=== PATIENT | female | born 1975 | race Caucasian/White ===

== ENCOUNTER 2016-09-01 10:28 | Emergency (ER) | payer BC, OTHER ==
[2016-09-01 11:13] VITALS: RESP 16
[2016-09-01] MEDS ORDERED: SODIUM CHLORIDE 0.9% 1,000 ML IV STA (12:31)
--- NOTE | 2016-09-01 12:43 | ED ---
General Adult HPI - General Chief complaint: Vaginal Bleeding Stated complaint: abd pain 8 weeks preg Time Seen by Provider: 09/01/16 12:22 Source: patient, RN notes reviewed Mode of arrival: ambulatory Limitations: no limitations - History of Present Illness Initial comments: 41-year-old female presents to the emergency department with a chief complaint of vaginal bleeding. Patient was diagnosed with no activity on Saturday. Patient states her last today she's noticed some increased vaginal bleeding she' s passing clots. Patient states she has had some lightheadedness with this and felt faint like she might pass out so she became concerned. Patient states she has had some cramping with this. atient states she was concerned due to her continued symptoms that she thought that she should be evaluated.Patient denies any recent fever, chills, shortness of breath, chest pain, back pain, nausea vomiting, numbness or tingling, dysuria or hematuria, constipation or diarrhea, headaches or visual changes, or any other current symptoms. - Related Data Home Medications Medication Instructions Recorded Confirmed Pnv with Ca,No.72/Iron/FA 1 tab PO HS 09/01/16 09/01/16 [ Plus Tablet] Allergies Allergy/AdvReac Type Severity Reaction Status Date / Time bupropion [From Wellbutrin] Allergy Unknown Verified 09/01/16 12:10 Review of Systems ROS Statement: Those systems with pertinent positive or pertinent negative responses have been documented in the HPI. ROS Other: All systems not noted in ROS Statement are negative. Past Medical History Past Medical History: No Reported History History of Any Multi-Drug Resistant Organisms: None Reported Past Surgical History: No Surgical Hx Reported Past Psychological History: No Psychological Hx Reported Smoking Status: Current every day smoker Past Alcohol Use History: None Reported Past Drug Use History: None Reported General Exam - General Exam Comments Initial Comments: General: The patient is awake and alert, in no distress, and does not appear acutely ill. Eye: Pupils are equal, round and reactive to light, extra-ocular movements are intact; there is normal conjunctiva bilaterally. No signs of icterus. Ears, nose, mouth and throat: There are moist mucous membranes and no oral lesions. Neck: The neck is supple, there is no tenderness. Cardiovascular: There is a regular rate and rhythm. No murmur, rub or gallop is appreciated. Respiratory: Lungs are clear to auscultation, respirations are non-labored, breath sounds are equal. No wheezes, stridor, rales, or rhonchi. Gastrointestinal: Soft, non-distended, non-tender abdomen without masses or organomegaly noted. There is no rebound or guarding present. No CVA tenderness. Bowel sounds are unremarkable. Back: There is no tenderness to palpation in the midline. There is no obvious deformity. No rashes noted. Musculoskeletal: Normal ROM, no tenderness, There is no pedal edema. There is no calf tenderness or swelling. Sensation intact. Pulses equal bilaterally 2+. Neurological: CN II-XII intact, There are no obvious motor or sensory deficits. Coordination appears grossly intact. Speech is normal. Skin: Skin is warm and dry and no rashes or lesions are noted. Psychiatric: Cooperative, appropriate mood & affect, normal judgment. Limitations: no limitations Course Vital Signs 09/01/16 09/01/16 11:10 13:20 Temperature 99.1 F Pulse Rate 81 Pulse Rate [ 67 Radial] Respiratory 16 Rate Blood Pressure 98/52 Blood Pressure 92/53 [Sitting] Blood Pressure 88/52 [Standing] Blood Pressure 88/47 [Supine] O2 Sat by Pulse 100 Oximetry Medical Decision Making - Medical Decision Making 41-year-old female presents for vaginal bleeding in . At this time patient's ultrasound and blood work was reviewed. It appears that the patient did have a spontaneous . At this time patient's pelvic exam showed minimal amount of bleeding. A discussion follow-up with her MACHINIST MATE. We did discuss return parameters. The simply like to go prior to giving a urine sample. This time she will be discharged. We discussed return parameters all patient's questions. She stated that she understood and she has agreed with plan. She will be discharged. - Lab Data Result diagrams: 09/01/16 12:50 09/01/16 12:50 Lab Results 09/01/16 09/01/16 09/01/16 Range/Units 12:50 12:50 12:50 WBC 6.1 (3.8-10.6) k/uL RBC 3.61 L (3.80-5.40) m/uL Hgb 11.6 (11.4-16.0) gm/dL Hct 35.6 (34.0-46.0) % MCV 98.7 (80.0-100.0) fL MCH 32.2 (25.0-35.0) pg MCHC 32.6 (31.0-37.0) g/dL RDW 13.1 (11.5-15.5) % Plt Count 194 (150-450) k/uL Neutrophils % 77 % Lymphocytes % 17 % Monocytes % 4 % Eosinophils % 1 % Basophils % 1 % Neutrophils # 4.7 (1.3-7.7) k/uL Lymphocytes # 1.1 (1.0-4.8) k/uL Monocytes # 0.2 (0-1.0) k/uL Eosinophils # 0.0 (0-0.7) k/uL Basophils # 0.0 (0-0.2) k/uL Sodium 139 (137-145) mmol/L Potassium 4.2 (3.5-5.1) mmol/L Chloride 107 (98-107) mmol/L Carbon Dioxide 27 (22-30) mmol/L Anion Gap 5 mmol/L BUN 5 L (7-17) mg/dL Creatinine 0.66 (0.52-1.04) mg/dL Est GFR (MDRD) Af Amer >60 (>60 ml/min/1.73 sqM) Est GFR (MDRD) Non-Af >60 (>60 ml/min/1.73 sqM) Glucose 93 (74-99) mg/dL Calcium 9.3 (8.4-10.2) mg/dL Total Bilirubin 0.4 (0.2-1.3) mg/dL AST 20 (14-36) U/L ALT 28 (9-52) U/L Alkaline Phosphatase 47 (38-126) U/L Total Protein 6.7 (6.3-8.2) g/dL Albumin 4.1 (3.5-5.0) g/dL HCG, Quant 3998.7 mIU/mL Blood Type O Positive Blood Type Recheck No - Radiology Data Radiology results: report reviewed, image reviewed Disposition Clinical Impression: Spontaneous Disposition: HOME SELF-CARE Condition: Stable Instructions: Miscarriage (ED) Additional Instructions: Please use medication as discussed. Please follow up with family doctor if symptoms have not improved over the next two days. Please return to the emergency room if your symptoms increase or worsen or for any other concerns. Referrals: Cynthia Dillon MD [Primary Care Provider] - 1-2 days Aruna Cody MD [STAFF PHYSICIAN] - 1-2 days Time of Disposition: 14:42
[2016-09-01 13:04] LABS: Basophils % (A) 1 %; CH 32.3; CHCM 32.9; Eosinophils % (A) 1 %; HCT 35.6 % (34.0-46.0); HDW 1.93; HGB 11.6 gm/dL (11.4-16.0); Luc # (Auto) 0.08; Luc % (Auto) 1; Lymphocytes # (A) 1.1 k/uL (1.0-4.8); Lymphocytes % (A) 17 %; MCH 32.2 pg (25.0-35.0); MCHC 32.6 g/dL (31.0-37.0); MCV 98.7 fL (80.0-100.0); Mean Platelet Volume 7.4; Monocytes # (A) 0.2 k/uL (0-1.0); Monocytes % (A) 4 %; Neutrophils # (A) 4.7 k/uL (1.3-7.7); Neutrophils % (A) 77 %; RBC 3.61 m/uL (3.80-5.40); RDW 13.1 % (11.5-15.5); WBC 6.1 k/uL (3.8-10.6); WBC (Perox) 5.99
[2016-09-01 13:15] LABS: ALT 28 U/L (9-52); AST 20 U/L (14-36); Alkaline Phosphatase 47 U/L (38-126); Anion Gap 5 mmol/L; Blood Urea Nitrogen 5 mg/dL (7-17); Calcium 9.3 mg/dL (8.4-10.2); Carbon Dioxide 27 mmol/L (22-30); Chloride 107 mmol/L (98-107); Glucose 93 mg/dL (74-99); Non-African American GFR(MDRD) >60 (>60 ml/min/1.73 sqM); Potassium 4.2 mmol/L (3.5-5.1); Sodium 139 mmol/L (137-145); Total Bilirubin 0.4 mg/dL (0.2-1.3); Total Protein 6.7 g/dL (6.3-8.2)
[2016-09-01 13:30] LABS: HCG,Quantitative Serum 3998.7 mIU/mL
--- NOTE | 2016-09-01 14:32 | US ---
EXAMINATION TYPE: US OB <= 14 wk fetus DATE OF EXAM: 09/01/2016 1:55 PM COMPARISON: NONE CLINICAL HISTORY: Pain. pt had ultrasound one week ago at [facility] and showed empty gest sac; now heavy bleeding and passing large clots EXAM PERFORMED: Transabdominal (TA) EXAM MEASUREMENTS: GESTATIONAL AGE / DATING Physician Established: not established Dates by LMP: unknown lmp Dates by First Scan: no prior here Dates by Current Scan for: no IUP seen MATERNAL ANATOMY Uterus: 11.3 x 4.8 x 6.8cm Endometrium: 1.7cm Right Ovary: 2.4 x 1.7 x 1.0cm Left Ovary: 2.0 x 1.3 x 2.0cm Post CDS / Adnexa: wnl Presence of free fluid: none seen Thickened heterogeneous non-vascular endometrial debris. No IUP seen. Probable incomplete miscarria ge. IMPRESSION: 1. No intrauterine identified at this time. Correlate for spontaneous . 2. Differential could include ectopic an early intrauterine . Correlation with bet a-hCG is recommended.
[2016-09-01 14:52] VITALS: BP 97/47; PULSE 63; TEMP 98.7
== END 2016-09-01 14:50 | disposition home or self-care (01) ==
LOC: EC 10:28
DX: O03.9 Complete or unspecified spontaneous abortion without complication (principal); O99.89 Other specified diseases and conditions complicating pregnancy, childbirth and the puerperium; O99.331 Smoking (tobacco) complicating pregnancy, first trimester; R42 Dizziness and giddiness; F17.200 Nicotine dependence, unspecified, uncomplicated; Z3A.08 8 weeks gestation of pregnancy; Z79.899 Other long term (current) drug therapy; Z88.8 Allergy status to other drugs, medicaments and biological substances
CPT/HCPCS: 36415; 76801; 80053; 84702; 85025; 86900; 86901; 96360; 99284

== ENCOUNTER → 2017-03-20 | Outpatient (CLI) | payer OTHER ==
--- NOTE | 2017-03-20 15:05 | FL ---
EXAMINATION TYPE: FL barium swallow DATE OF EXAM: 03/20/2017 CLINICAL HISTORY: Dysphagia, dysphonia, and palpitations. TECHNIQUE: A double contrast esophagram is performed utilizing air and barium. A total of 1.7 minut es of fluoroscopic time was utilized during procedure with 120 images saved. COMPARISON: None FINDINGS: The esophagus shows normal motility and emptying into the stomach. No evidence of strictur e is noted. Minimal gastroesophageal reflux was seen during real time performance of this study to th e level of the distal third of the esophagus.. No Zenker's or Saco Wei diverticula are seen to a ccount for the patient's symptoms. A small hiatal hernia is noted. Numerous intraluminal gastric fill ing defects do not persist on delayed images and relate to the effervescent crystals. There is extrinsic compression upon the gastric body along the greater curvature creating an obtuse a ngle best seen on images 12 through 15 but persistent throughout the examination. IMPRESSION: 1. Extrinsic compression upon the gastric body creating an obtuse angle. Further evaluation with enha nced CT abdomen is recommended 2. Small hiatal hernia. 3. No upper esophageal abnormality, Saco Wei diverticulum, or Zenker's diverticulum to correspon d to the patient's clinical symptoms. 4. Minimal gastroesophageal reflux to the level of the lower thoracic esophagus (distal third).
== END | disposition home or self-care (01) ==
LOC: RADFLWHC 10:09
PROVIDERS: ATTEND Internal Medicine
DX: K21.9 Gastro-esophageal reflux disease without esophagitis (principal); K44.9 Diaphragmatic hernia without obstruction or gangrene
CPT/HCPCS: 74220

== ENCOUNTER 2017-04-25 14:35 | Emergency (ER) | payer OTHER ==
[2017-04-25 14:43] VITALS: RESP 16
--- NOTE | 2017-04-25 15:36 | ED ---
General Adult HPI - General Chief complaint: Headache Stated complaint: back & chest pain Time Seen by Provider: 04/25/17 15:33 Source: patient, RN notes reviewed, old records reviewed Mode of arrival: ambulatory Limitations: no limitations - History of Present Illness Initial comments: This is a 42-year-old female to the ER for evaluation. She presents here for evaluation of cough congestion and sinusitis chest pain not feeling well. Patient denies fevers occasional chills. No significant medical history takes no medications. Patient saw her doctor for congestion sinus infection one week ago, no antibiotics prescribed. A CT of her chest showed likely pneumonia. Patient states her symptoms have progressed since then is feeling mildly worse. Mild nausea no vomiting. She denies any fevers again no no known sick contacts. Patient denies any shortness of breath or chest pain - Related Data Home Medications Medication Instructions Recorded Confirmed Multivitamins, Thera [Multivitamin 1 tab PO DAILY 04/25/17 04/25/17 (formulary)] Previous Rx's Medication Instructions Recorded Amoxicillin/Potassium Clav 1 tab PO Q12HR #20 tab 04/25/17 [Augmentin 875-125 Tablet] Allergies Allergy/AdvReac Type Severity Reaction Status Date / Time bupropion [From Wellbutrin] Allergy Unknown Verified 04/25/17 15:43 Review of Systems ROS Statement: Those systems with pertinent positive or pertinent negative responses have been documented in the HPI. ROS Other: All systems not noted in ROS Statement are negative. Past Medical History Past Medical History: Pneumonia Additional Past Medical History / Comment(s): tachycardia History of Any Multi-Drug Resistant Organisms: None Reported Past Surgical History: No Surgical Hx Reported Past Psychological History: No Psychological Hx Reported Smoking Status: Current every day smoker Past Alcohol Use History: None Reported Past Drug Use History: None Reported General Exam Limitations: no limitations General appearance: alert, in no apparent distress Head exam: Present: atraumatic, normocephalic, normal inspection Eye exam: Present: normal appearance, PERRL, EOMI. Absent: scleral icterus, conjunctival injection, periorbital swelling ENT exam: Present: normal exam, mucous membranes moist Neck exam: Present: normal inspection. Absent: tenderness, meningismus, lymphadenopathy Respiratory exam: Present: normal lung sounds bilaterally. Absent: respiratory distress, wheezes, rales, rhonchi, stridor Cardiovascular Exam: Present: regular rate, normal rhythm, normal heart sounds. Absent: systolic murmur, diastolic murmur, rubs, gallop, clicks GI/Abdominal exam: Present: soft, normal bowel sounds. Absent: distended, tenderness, guarding, rebound, rigid Extremities exam: Present: normal inspection, full ROM, normal capillary refill. Absent: tenderness, pedal edema, joint swelling, calf tenderness Back exam: Present: normal inspection Neurological exam: Present: alert, oriented X3, CN II-XII intact Psychiatric exam: Present: normal affect, normal mood Skin exam: Present: warm, dry, intact, normal color. Absent: rash Course Vital Signs 04/25/17 04/25/17 14:39 16:53 Temperature 98.7 F 98.2 F Pulse Rate 78 69 Respiratory 16 16 Rate Blood Pressure 128/74 115/56 O2 Sat by Pulse 100 100 Oximetry - Reevaluation(s) Reevaluation #1: 04/25/17 17:03 Patient's in no acute distress feeling better with simply treatment here in the ER Medical Decision Making - Medical Decision Making Provisional ER for evaluation of not feeling well, he should has sinusitis type infection, runny nose cough congestion. Upper respiratory infection, chest x- rays negative, patient be treated appropriately, synthetic therapy discharged home - Lab Data Lab Results 04/25/17 Range/Units 16:28 Urine Color Light Yellow Urine Appearance Clear (Clear) Urine pH 6.5 (5.0-8.0) Ur Specific [place] 1.004 (1.001-1.035) Urine Protein Negative (Negative) Urine Glucose (UA) Negative (Negative) Urine Ketones Negative (Negative) Urine Blood Negative (Negative) Urine Nitrite Negative (Negative) Urine Bilirubin Negative (Negative) Urine Urobilinogen <2.0 (<2.0) mg/dL Ur Leukocyte Esterase Negative (Negative) Disposition Clinical Impression: Sinusitis, Upper respiratory infection Disposition: HOME SELF-CARE Condition: Good Instructions: Upper Respiratory Infection (ED), Sinusitis (ED) Prescriptions: Amoxicillin/Potassium Clav [Augmentin 875-125 Tablet] 1 tab PO Q12HR #20 tab Referrals: Cynthia Dillon MD [Primary Care Provider] - 1-2 days
[2017-04-25] MEDS ORDERED: Acetaminophen-Codeine 300-30mg TAB PO STA (16:18)
[2017-04-25] MEDS ORDERED: ACETAMINOPHEN TAB 325 MG TAB PO STA (16:18)
[2017-04-25] MEDS ORDERED: IBUPROFEN 800 MG TAB PO STA (16:18)
[2017-04-25] MEDS ORDERED: LORATADINE-PSEUDOEPH 5-120 MG 1 EACH TAB.ER.12H PO STA (16:19)
--- NOTE | 2017-04-25 16:39 | XR ---
EXAMINATION TYPE: XR chest 2V DATE OF EXAM: 04/25/2017 COMPARISON: NONE HISTORY: Chest pain TECHNIQUE: Frontal and lateral views of the chest are obtained. FINDINGS: There is no focal air space opacity, pleural effusion, or pneumothorax seen. The cardiac silhouette size is small. Prominent lung volume could be indicative of COPD. The osseous structures are intact. IMPRESSION: No acute cardiopulmonary process.
[2017-04-25 16:45] LABS: Appearance,Urine Clear (Clear); Bilirubin,Urine Negative (Negative); Glucose,Urine (UA) Negative (Negative); Ketones,Urine Negative (Negative); Leukocyte Esterase,Urine Negative (Negative); Nitrite,Urine Negative (Negative); PH, Urine 6.5 (5.0-8.0); Protein,Urine Negative (Negative); Specific Gravity,Urine 1.004 (1.001-1.035); UA Billing (MACRO vs. MICRO) CHEM; Urobilinogen,Urine <2.0 mg/dL (<2.0)
[2017-04-25 16:54] VITALS: TEMP 98.2
[2017-04-25 17:21] VITALS: BP 111/66; PULSE 63
== END 2017-04-25 17:21 | disposition home or self-care (01) ==
LOC: EC 14:35
DX: J32.9 Chronic sinusitis, unspecified (principal); J06.9 Acute upper respiratory infection, unspecified; F17.200 Nicotine dependence, unspecified, uncomplicated; Z79.899 Other long term (current) drug therapy; Z88.8 Allergy status to other drugs, medicaments and biological substances; Z53.20 Procedure and treatment not carried out because of patient's decision for unspecified reasons
CPT/HCPCS: 71020; 81003; 87086; 87502; 99284

== ENCOUNTER → 2017-06-26 | Outpatient (CLI) | payer OTHER ==
--- NOTE | 2017-06-27 09:03 | MM ---
Reason for exam: screening (asymptomatic). History: Excisional biopsy of the left breast, 1982. Physical Findings: A clinical breast exam by your physician is recommended on an annual basis and results should be correlated with mammographic findings. MG Screening Mammo w CAD Bilateral CC and MLO view(s) were taken. No prior studies available for comparison. The breast tissue is heterogeneously dense. This may lower the sensitivity of mammography. There is no discrete abnormality. No significant changes when compared with prior studies. ASSESSMENT: Negative, BI-RAD 1 RECOMMENDATION: Routine screening mammogram of both breasts in 1 year.
== END | disposition home or self-care (01) ==
LOC: RADMAMWWP 09:51
PROVIDERS: ATTEND Obstetrics & Gynecology
DX: Z12.31 Encounter for screening mammogram for malignant neoplasm of breast (principal)
CPT/HCPCS: 77067